=== PATIENT | male | born 1990 | race Caucasian/White ===

== ENCOUNTER 2017-01-05 12:29 | Emergency (ER) | payer OTHER ==
[~2017-01-05] VITALS: Ht 170.2 cm; Wt 70.3 kg
[2017-01-05 12:30] VITALS: BP 104/45; PULSE 106; RESP 16; TEMP 99.1; O2SAT 98
[2017-01-05] MEDS ORDERED: PROPOFOL DRIP 100 ML IV ONE (13:00)
[2017-01-05] MEDS ORDERED: DEXAMETHASONE SOD PHOSPHATE 10 MG/ML VIAL IVP ONE (13:00)
[2017-01-05] MEDS ORDERED: ONDANSETRON HCL 4 MG/2 ML VIAL IVP ONE (13:00)
[2017-01-05] MEDS ORDERED: ETOMIDATE 20 MG/ 10 ML VIAL (AMIDATE) IVP ONE (13:15)
[2017-01-05] MEDS ORDERED: NACL 0.9% 1,000 ML IV ONE (13:15)
[2017-01-05] MEDS ORDERED: MORPHINE 4 MG/ML INJ. SYRINGE ONE (13:41)
[2017-01-05] MEDS ORDERED: CEFAZOLIN 2 GM IVPB PREMIX 50 ML IV ONE (14:00)
[2017-01-05] MEDS ORDERED: MORPHINE 4 MG/ML INJ. SYRINGE IVP ONE (14:30)
[2017-01-05 14:55] LABS: BASOPHILS # (AUTO) 0.1 K/uL (0.0-0.2); BASOPHILS % (AUTO) 0.7 % (0.0-2.0); HEMATOCRIT 43.2 % (36-54); HEMOGLOBIN 14.2 g/dL (14.0-18.0); LYMPHOCYTES # (AUTO) 0.6 K/uL (1.0-5.5); LYMPHOCYTES % (AUTO) 3.5 % (20.5-51.5); MEAN CORPUSCULAR HEMOGLOBIN 27 pg (27-31); MEAN CORPUSCULAR HGB CONC 33 % (32-36); MEAN CORPUSCULAR VOLUME 84 fL (79.0-98.0); MONOCYTES # (AUTO) 0.3 K/uL (0.0-1.0); MONOCYTES % (AUTO) 1.6 % (1.7-9.3); NEUTROPHILS # (AUTO) 17.5 K/uL (1.8-7.7); PLATELET COUNT (AUTO) 231 K/uL (130-430); RED BLOOD CELL COUNT(AUTO) 5.18 MIL/uL (4.2-6.2); RED CELL DISTRIBUTION WIDTH 13.1 % (9.0-15.0); WHITE BLOOD COUNT (AUTO) 18.5 K/uL (4.8-10.8)
[2017-01-05 15:01] LABS: CALCIUM 8.6 mg/dL (8.4-11.0); CREATININE 1.29 mg/dL (0.55-1.30); POTASSIUM 4.2 mmol/L (3.5-5.1)
[2017-01-05 15:04] LABS: INR 1.4 (0.80-1.20); PROTHROMBIN TIME 14.9 SECS (9.5-12.5)
[2017-01-05 15:06] LABS: ALBUMIN 4.1 g/dL (3.4-4.8); TOTAL BILIRUBIN 0.4 mg/dL (0.0-1.0); TOTAL PROTEIN, SERUM 7.2 g/dL (6.4-8.3)
[2017-01-05] MEDS ORDERED: DIPH-TET-PERTUS Vaccine 0.5 ML VIAL (ADACEL) I.M. ONE (15:30)
[2017-01-05 15:46] LABS: NEUTROPHILS % (AUTO) 94.2 % (40.0-70.0)
[2017-01-05 16:05] VITALS: BP 121/63; PULSE 100; RESP 18; TEMP 97.8; O2SAT 97
== END 2017-01-05 15:50 | disposition short-term general hospital (02) ==
LOC: SED 12:29
DX: S52.501A Unspecified fracture of the lower end of right radius, initial encounter for closed fracture (principal); S52.601A Unspecified fracture of lower end of right ulna, initial encounter for closed fracture; V87.8XXA Person injured in other specified noncollision transport accidents involving motor vehicle (traffic), initial encounter; Y93.55 Activity, bike riding; Y92.410 Unspecified street and highway as the place of occurrence of the external cause; Y99.8 Other external cause status
CPT/HCPCS: 25565; 36415; 72125; 73090; 80053; 85025; 85610; 85730; 90471; 90715; 93005; 96361; 96365; 96375; 99152; 99285; J0690; J1100; J2270; J2405; J2704; J7030; 96374

== ENCOUNTER 2019-12-28 02:30 | Emergency (ER) | payer MEDICAID, OTHER ==
[~2019-12-28] VITALS: Ht 167.6 cm; Wt 89.8 kg
[2019-12-28 02:35] VITALS: BP_SYST 143
--- NOTE | 2019-12-28 02:40 | NUR ---
Patient to ER bed 4 to gown for evaluation. Side rails up. Report given to STEPHANIE VAZQUEZ.
--- NOTE | 2019-12-28 02:42 | NUR ---
ER at bedside examining patient.
--- NOTE | 2019-12-28 02:45 | NUR ---
patient is alert and oriented x4 and complains of lower back pain that radiates to the front of his stomach. patient states his back pain started on 12/26/19 and could not sleep at all so he called off work but the pain went away during most of the day. Patient states the pain came back tonight 12/27/19 around 10pm. Patient took a tylenol 500 mg around 2pm and he said it took his pain from a 7 out of 10 to a 5 out of 10. Patient states laying down cause the pain to worsen. Patient complains of nausea earlier today. Patient denies fever, cough, shortness of breath. Patient voices no other medical complaints at this time, will continue to monitor.
[2019-12-28 03:26] LABS: BASOPHILS % (AUTO) 0.4 % (0.0-2.0); EOSINOPHILS # (AUTO) 0.1 K/uL (0.0-0.4); EOSINOPHILS % (AUTO) 1.9 % (0.0-4.0); HEMATOCRIT 39.2 % (36-54); HEMOGLOBIN 13.2 g/dL (14.0-18.0); LYMPHOCYTES # (AUTO) 2.2 K/uL (1.0-5.5); LYMPHOCYTES % (AUTO) 30.3 % (20.5-51.5); MEAN CORPUSCULAR HEMOGLOBIN 27 pg (27-31); MEAN CORPUSCULAR HGB CONC 34 % (32-36); MEAN CORPUSCULAR VOLUME 82 fL (79.0-98.0); MONOCYTES # (AUTO) 0.5 K/uL (0.0-1.0); MONOCYTES % (AUTO) 6.6 % (1.7-9.3); NEUTROPHILS # (AUTO) 4.5 K/uL (1.8-7.7); NEUTROPHILS % (AUTO) 60.8 % (40.0-70.0); PLATELET COUNT (AUTO) 251 K/uL (130-430); RED BLOOD CELL COUNT(AUTO) 4.81 MIL/uL (4.2-6.2); RED CELL DISTRIBUTION WIDTH 13.6 % (9.0-15.0); WHITE BLOOD COUNT (AUTO) 7.3 K/uL (4.8-10.8)
[2019-12-28 03:29] LABS: CALCIUM 8.6 mg/dL (8.4-11.0); CREATININE 1.03 mg/dL (0.55-1.30); POTASSIUM 3.7 mmol/L (3.5-5.1)
[2019-12-28 03:33] LABS: ALBUMIN 3.8 g/dL (3.4-4.8); TOTAL BILIRUBIN 0.4 mg/dL (0.0-1.0)
--- NOTE | 2019-12-28 03:33 | NUR ---
Patient states his pain has completely gone away and "he feels back to normal". Patient rates his pain a 0 out 10.
[2019-12-28 03:39] LABS: BILIRUBIN,URINE NEGATIVE (NEGATIVE); BLOOD, URINE NEGATIVE (NEGATIVE); CLARITY/URINE CLEAR (CLEAR); COLOR,URINE YELLOW (YELLOW); GLUCOSE,URINE NEGATIVE (NEGATIVE); KETONES,URINE NEGATIVE (NEGATIVE); LEUKOCYTE ESTERASE ,URINE NEGATIVE (NEGATIVE); NITRITE, URINE NEGATIVE (NEGATIVE); PH,URINE 6.5 (5.0-8.0); PROTEIN URINE NEGATIVE (NEGATIVE)
--- NOTE | 2019-12-28 04:47 | NUR ---
patient states he was frequently burping and felt nauseous earlier. MD notified.
[2019-12-28] MEDS ORDERED: MAG-AL HYDROX/SIMETH 30 ML UDC PO ONE (05:00)
[2019-12-28] MEDS ORDERED: LIDOCAINE VISCOUS 2%, 15 ML UDC MM ONE (05:00)
[2019-12-28 05:11] VITALS: BP_SYST 124
--- NOTE | 2019-12-28 05:11 | NUR ---
Patient given written and verbal discharge instructions and verbalizes understanding. ER MD discussed with patient the results and treatment provided. Patient in stable condition. ID arm band removed. Rx of pepcid given. Patient educated on pain management and to follow up with PMD. Pain Scale 0/10. Opportunity for questions provided and answered. Medication side effect fact sheet provided.
== END 2019-12-28 05:11 | disposition home or self-care (01) ==
LOC: SED 02:30
DX: M54.6 Pain in thoracic spine (principal); R10.9 Unspecified abdominal pain
CPT/HCPCS: 36415; 80053; 81003; 83690; 85025; 93005; 99284; J2001

== ENCOUNTER 2020-12-12 17:55 | Emergency (ER) | payer OTHER, MEDICAID ==
[~2020-12-12] VITALS: Ht 170.2 cm; Wt 98.9 kg
[2020-12-12 18:29] VITALS: BP_SYST 144
[2020-12-12] MEDS ORDERED: MORPHINE 2 MG/ML INJ. SYRINGE IVP ONE (20:00)
[2020-12-12] MEDS ORDERED: MAG HYDROX/AL HYDROX/SIMETH 30 ML, DICYCLOMINE HCL 20 MG, LIDOCAINE VISCOUS 2% 15ML (PO... PO ONE ×3 (20:00)
[2020-12-12] MEDS ORDERED: PANTOPRAZOLE SODIUM 40 MG/VIAL (PROTONIX) IVP ONE (20:00)
[2020-12-12] MEDS ORDERED: NACL 0.9% 1,000 ML IV ONE (20:00)
[2020-12-12 20:13] LABS: CALCIUM 10.1 mg/dL (8.4-11.0); CREATININE 1.36 mg/dL (0.55-1.30); POTASSIUM 3.3 mmol/L (3.5-5.1)
[2020-12-12] MEDS ORDERED: ONDANSETRON HCL 4 MG/2 ML VIAL IVP ONE (20:15)
[2020-12-12] MEDS ORDERED: ONDANSETRON HCL 4 MG/2 ML VIAL ONE (20:16)
[2020-12-12 20:20] LABS: BILIRUBIN,URINE NEGATIVE (NEGATIVE); BLOOD, URINE NEGATIVE (NEGATIVE); CLARITY/URINE CLEAR (CLEAR); COLOR,URINE YELLOW (YELLOW); GLUCOSE,URINE NEGATIVE (NEGATIVE); KETONES,URINE TRACE (NEGATIVE); LEUKOCYTE ESTERASE ,URINE NEGATIVE (NEGATIVE); NITRITE, URINE NEGATIVE (NEGATIVE); PH,URINE 6.5 (5.0-8.0); PROTEIN URINE NEGATIVE (NEGATIVE); UROBILINOGEN,URINE 0.2 (0.2-1.0)
[2020-12-12 20:26] LABS: BASOPHILS # (AUTO) 0.2 K/uL (0.0-0.2); BASOPHILS % (AUTO) 1.2 % (0.0-2.0); EOSINOPHILS % (AUTO) 0.3 % (0.0-4.0); HEMATOCRIT 44.1 % (36-54); HEMOGLOBIN 14.5 g/dL (14.0-18.0); LYMPHOCYTES # (AUTO) 1.2 K/uL (1.0-5.5); LYMPHOCYTES % (AUTO) 7.6 % (20.5-51.5); MEAN CORPUSCULAR HEMOGLOBIN 27 pg (27-31); MEAN CORPUSCULAR HGB CONC 33 % (32-36); MEAN CORPUSCULAR VOLUME 82 fL (79.0-98.0); MONOCYTES # (AUTO) 0.5 K/uL (0.0-1.0); MONOCYTES % (AUTO) 2.9 % (1.7-9.3); NEUTROPHILS # (AUTO) 14.2 K/uL (1.8-7.7); PLATELET COUNT (AUTO) 287 K/uL (130-430); RED BLOOD CELL COUNT(AUTO) 5.41 MIL/uL (4.2-6.2); RED CELL DISTRIBUTION WIDTH 14.4 % (9.0-15.0); WHITE BLOOD COUNT (AUTO) 16.2 K/uL (4.8-10.8)
[2020-12-12 20:27] LABS: ALBUMIN 4.5 g/dL (3.4-4.8); TOTAL BILIRUBIN 0.4 mg/dL (0.0-1.0)
[2020-12-12] MEDS ORDERED: PRO40 PO (22:05)
[2020-12-12 22:15] VITALS: BP_SYST 104
== END 2020-12-12 22:15 | disposition home or self-care (01) ==
LOC: SED 17:55
DX: K29.70 Gastritis, unspecified, without bleeding (principal)
CPT/HCPCS: 36415; 80053; 81003; 83690; 85025; 96361; 96374; 96375; 99284; C9113; J2001; J2270; J2405; J7030

== ENCOUNTER 2022-05-05 09:14 | Inpatient (IN) | payer MEDICAID, OTHER ==
[~2022-05-05] VITALS: Ht 170.2 cm; Wt 90.3 kg
[~2022-05-05 09:14] MED LIST: PRO40 PO
[2022-05-05 09:15] VITALS: BP_SYST 113
--- NOTE | 2022-05-05 09:15 | NUR ---
BROUGHT BACK TO BED #7 AND TRIAGED, REPORT GIVEN TO DAV
--- NOTE | 2022-05-05 09:20 | NUR ---
PT BIB SELF ABD PAIN RADIATES TO BACK, HX OF GASTRITIS. MD AT BEDSIDE
[2022-05-05] MEDS ORDERED: MAG HYDROX/AL HYDROX/SIMETH 30 ML, DICYCLOMINE HCL 20 MG, LIDOCAINE VISCOUS 2% 15ML (PO... PO ONE ×3 (09:30)
[2022-05-05] MEDS ORDERED: OMEP40CA20 PO (09:40)
[2022-05-05] MEDS ORDERED: ONDA-8 TL (09:40)
[2022-05-05] MEDS ORDERED: DICY10CA13 PO (09:42)
[2022-05-05] MEDS ORDERED: ONDANSETRON 4 MG ODT TAB PO ONE (09:45)
[2022-05-05 09:52] LABS: BASOPHILS % (AUTO) 0.2 % (0.0-2.0); EOSINOPHILS % (AUTO) 0.1 % (0.0-4.0); HEMATOCRIT 42.2 % (36-54); LYMPHOCYTES # (AUTO) 1.5 K/uL (1.0-5.5); LYMPHOCYTES % (AUTO) 16.6 % (20.5-51.5); MEAN CORPUSCULAR VOLUME 80 fL (79.0-98.0); MONOCYTES # (AUTO) 0.6 K/uL (0.0-1.0); MONOCYTES % (AUTO) 6.6 % (1.7-9.3); NEUTROPHILS # (AUTO) 6.9 K/uL (1.8-7.7); NEUTROPHILS % (AUTO) 76.5 % (40.0-70.0); PLATELET COUNT (AUTO) 245 K/uL (130-430); RED BLOOD CELL COUNT(AUTO) 5.26 MIL/uL (4.2-6.2); RED CELL DISTRIBUTION WIDTH 13.2 % (9.0-15.0); WHITE BLOOD COUNT (AUTO) 9.1 K/uL (4.8-10.8)
[2022-05-05 10:14] LABS: CALCIUM 9.7 mg/dL (8.4-11.0); CREATININE 1.29 mg/dL (0.55-1.30); POTASSIUM 3.3 mmol/L (3.5-5.1)
[2022-05-05 10:23] LABS: ALBUMIN 4.2 g/dL (3.4-4.8); TOTAL BILIRUBIN 3.8 mg/dL (0.0-1.0)
--- NOTE | 2022-05-05 12:45 | NUR ---
NOTIFIED ED ADMITTING REGARDING DR. COTTO'S REQUEST FOR ADMISSION/TRANSFER. PER DR. COTTO, PT IS STABLE FOR TRANSFER. WILL CONTACT SR. STRATEGIC SOURCING MANAGER REGARDING THIS MATTER. PER FACESHEET: LAURA BRENNER/[facility]
--- NOTE | 2022-05-05 13:46 | NUR ---
PER JOSH, ED ADMITTING, STATED SHE CALLED [facility] [employer] [facility] [facility] MULTIPLE TIMES AND OFFICE IS CLSOED ON [facility] AND THERE WAS NO ANSWER TO THE OTHER NUMBER PROVIDED.
[2022-05-05] MEDS ORDERED: PROP20TA7 PO (14:05)
[2022-05-05] MEDS ORDERED: PROP10TA10 PO (14:08)
--- NOTE | 2022-05-05 14:09 | NUR ---
Admit bed requested Patient will be admitted to care of . Admitted to [facility] unit. Diagnosis ACUTE CHOLECYSTITIS Inpatient (Yes or No) Y Observation (Yes or No) N Orientation concerns or request close to nursing station (Yes or No) N Covid Status PENDING On vent or bipap N Isolation requirements N Needs a sitter N From Home (Yes or if No enter name of facility) Y Requires Dialysis (Yes or No) N Med Rec Completed (Yes of No) Y
--- NOTE | 2022-05-05 14:44 | NUR ---
Medication reconciliation completed with information provided by TK. Any prior medication reconciliation on file was reviewed and corrected.
[2022-05-05] MEDS ORDERED: ONDANSETRON HCL 4 MG/2 ML VIAL IVP PRN (15:30)
[2022-05-05] MEDS ORDERED: TEMAZEPAM 15 MG CAPSULE PO PRN (15:30)
[2022-05-05] MEDS ORDERED: NALOXONE HCL 0.4 MG/ML AMP (NARCAN) IVP PRN ×2 (15:30)
[2022-05-05] MEDS ORDERED: ACETAMINOPHEN 325 MG TABLET PO PRN (15:30)
[2022-05-05] MEDS ORDERED: HYDROmorphone 1 MG/ML INJ. CARTRIDGE IVP PRN (15:30)
[2022-05-05] MEDS ORDERED: POTASSIUM CHLORIDE 40 MEQ, LIDOCAINE JECT 2% PF 100 MG 50 MG in NS 250 ML IV ONE (16:30)
[2022-05-05] MEDS: D5LR 1,000 ML IV SCH (16:43)
[2022-05-05 20:00] VITALS: BP_SYST 110
--- NOTE | 2022-05-05 20:18 | NUR ---
TAYLOR [id number] GAVE REPORT TO NATHALIE VAZQUEZ FOR CONTINUITY OF CARE
[2022-05-05 20:30] VITALS: BP_SYST 110
[2022-05-05] MEDS: PROPRANOLOL HCL 10 MG TABLET (INDERAL) PO SCH (21:06)
[2022-05-06] VITALS: BP_SYST 114
[2022-05-06] MEDS: D5LR 1,000 ML IV SCH ×3 (01:50→21:30)
--- NOTE | 2022-05-06 06:17 | NUR ---
CONSULTATION PAGED/CALLED Reason for Consultation: general surgery Person Who was Notified: dr bingham Consulting Physician: dr bingham Cook'S Assistant Specialty: Ordering Physician: lu
[2022-05-06 07:30] LABS: HEMATOCRIT 38.8 % (36-54); MEAN CORPUSCULAR VOLUME 82 fL (79.0-98.0); RED BLOOD CELL COUNT(AUTO) 4.76 MIL/uL (4.2-6.2); WHITE BLOOD COUNT (AUTO) 5.5 K/uL (4.8-10.8)
[2022-05-06 07:31] LABS: BASOPHILS % (AUTO) 0.8 % (0.0-2.0); EOSINOPHILS % (AUTO) 0.6 % (0.0-4.0); LYMPHOCYTES # (AUTO) 1.3 K/uL (1.0-5.5); LYMPHOCYTES % (AUTO) 23.5 % (20.5-51.5); MONOCYTES # (AUTO) 0.4 K/uL (0.0-1.0); MONOCYTES % (AUTO) 8.1 % (1.7-9.3); NEUTROPHILS # (AUTO) 3.7 K/uL (1.8-7.7); PLATELET COUNT (AUTO) 208 K/uL (130-430); RED CELL DISTRIBUTION WIDTH 13.3 % (9.0-15.0)
[2022-05-06 07:56] LABS: ALBUMIN 3.4 g/dL (3.4-4.8); CREATININE 1.35 mg/dL (0.55-1.30); TOTAL BILIRUBIN 1.8 mg/dL (0.0-1.0)
[2022-05-06 08:00] VITALS: BP_SYST 120
[2022-05-06] MEDS: PROPRANOLOL HCL 10 MG TABLET (INDERAL) PO SCH ×2 (09:00→20:35)
[2022-05-06] MEDS ORDERED: OMEPRAZOLE Non-Formulary 20 MG CAPSULE.DR PO SCH (09:00)
[2022-05-06] MEDS: PANTOPRAZOLE SODIUM 40 MG TAB PO SCH (09:00)
[2022-05-06 12:00] VITALS: BP_SYST 118
[2022-05-06 12:17] LABS: BILIRUBIN,URINE 2+ (NEGATIVE); BLOOD, URINE NEGATIVE (NEGATIVE); CLARITY/URINE CLEAR (CLEAR); COLOR,URINE ORANGE (YELLOW); GLUCOSE,URINE NEGATIVE (NEGATIVE); KETONES,URINE 1+ (NEGATIVE); LEUKOCYTE ESTERASE ,URINE NEGATIVE (NEGATIVE); NITRITE, URINE NEGATIVE (NEGATIVE); PROTEIN URINE TRACE (NEGATIVE)
[2022-05-06 12:41] LABS: RBC,URINE 0-3 /HPF (0-3); WBC,URINE 0-3 /HPF (0-3)
[2022-05-06 12:42] LABS: BACTERIA,URINE None Seen /HPF (None Seen)
[2022-05-06 16:00] VITALS: BP_SYST 120
[2022-05-06 20:00] VITALS: BP_SYST 97
--- NOTE | 2022-05-06 23:34 | NUR ---
PATIENT IN BED, NO ACUTE DISTRESS NOTED. NPO AFTER MIDNIGHT FOR SURGERY. WILL CONTINUE TO MONITOR.
[2022-05-07 07:10] LABS: BASOPHILS % (AUTO) 0.4 % (0.0-2.0); EOSINOPHILS # (AUTO) 0.2 K/uL (0.0-0.4); EOSINOPHILS % (AUTO) 3.9 % (0.0-4.0); HEMATOCRIT 36.4 % (36-54); MEAN CORPUSCULAR VOLUME 81 fL (79.0-98.0); MONOCYTES # (AUTO) 0.4 K/uL (0.0-1.0); MONOCYTES % (AUTO) 8.3 % (1.7-9.3); NEUTROPHILS # (AUTO) 1.9 K/uL (1.8-7.7); NEUTROPHILS % (AUTO) 42.4 % (40.0-70.0); PLATELET COUNT (AUTO) 187 K/uL (130-430); RED BLOOD CELL COUNT(AUTO) 4.48 MIL/uL (4.2-6.2); RED CELL DISTRIBUTION WIDTH 13.3 % (9.0-15.0); WHITE BLOOD COUNT (AUTO) 4.5 K/uL (4.8-10.8)
[2022-05-07 07:31] LABS: ALBUMIN 2.8 g/dL (3.4-4.8); CALCIUM 8.5 mg/dL (8.4-11.0); CREATININE 1.12 mg/dL (0.55-1.30); POTASSIUM 3.7 mmol/L (3.5-5.1); TOTAL BILIRUBIN 0.6 mg/dL (0.0-1.0)
[2022-05-07 08:00] VITALS: BP_SYST 106
--- NOTE | 2022-05-07 08:00 | NUR ---
Mr Green has been assessed as indicated. He denies pain and rests quietly. He has been prepped for surgery this arfternoon. personal clothing has nicolette removed. he has on a hospital gown. all jewelry has been removed and he has been given a CHG bath.
[2022-05-07] MEDS: PANTOPRAZOLE SODIUM 40 MG TAB PO SCH (10:59)
[2022-05-07] MEDS: PROPRANOLOL HCL 10 MG TABLET (INDERAL) PO SCH ×2 (11:00→20:53)
--- NOTE | 2022-05-07 11:00 | NUR ---
appropriate IV access has been established in both arms
[2022-05-07] MEDS: D5LR 1,000 ML IV SCH ×2 (11:01→18:33)
--- NOTE | 2022-05-07 11:03 | NUR ---
Green states that he only takes 10mg of inderal BID
[2022-05-07 11:50] VITALS: BP_SYST 112
[2022-05-07 12:07] LABS: HEPATITIS A AB, IgM Negative (Negative); HEPATITIS B CORE AB, IgM Negative (Negative); HEPATITIS B SURFACE AG Negative (Negative)
--- NOTE | 2022-05-07 14:15 | NUR ---
Mr Green leaves room 125B via bed to got to the OR. He has no s/s of distress or discomfort and is compliant with the plan to have surgery.
[2022-05-07] MEDS ORDERED: LR 1,000 ML IV.SOLN IV ONE (14:40)
[2022-05-07] MEDS ORDERED: PROPOFOL 200MG/ 20ML VIAL (DIPRIVAN) IV ONE (14:40)
[2022-05-07] MEDS ORDERED: SUCCINYLCHOLINE CHLORIDE 20 MG/ML(QUELICIN) IVP ONE (14:40)
[2022-05-07] MEDS ORDERED: NS 1000 ML IV.SOLN IV ONE (14:40)
[2022-05-07] MEDS ORDERED: fentaNYL CITRATE/PF 100 MCG/2 ML AMP IVP ONE (14:40)
[2022-05-07] MEDS ORDERED: NEOSTIGMINE METHYLSULFATE 1 MG/ML, 10 ML VIAL IVP ONE (14:40)
[2022-05-07] MEDS ORDERED: ROCURONIUM BROMIDE 10 MG/ML (ZEMURON) IV ONE (14:40)
[2022-05-07] MEDS ORDERED: CEFAZOLIN 2 GM IVPB PREMIX 50 ML IV ONE (14:40)
[2022-05-07] MEDS ORDERED: GLYCOPYRROLATE 0.2 MG/ML VIAL IJ ONE (14:40)
[2022-05-07] MEDS ORDERED: NS IRRIG SOLN 1000 ML IR ONE (14:40)
[2022-05-07] MEDS ORDERED: SEVOFLURANE 15 MIN GAS INH ONE (14:40)
[2022-05-07] MEDS ORDERED: ONDANSETRON HCL 4 MG/2 ML VIAL IVP PRN (15:30)
[2022-05-07] MEDS ORDERED: METOCLOPRAMIDE HCL 10 MG/2 ML VIAL IVP PRN (15:30)
[2022-05-07] MEDS ORDERED: fentaNYL CITRATE/PF 100 MCG/2 ML AMP IVP PRN ×2 (15:30)
[2022-05-07] MEDS: fentaNYL CITRATE/PF 100 MCG/2 ML AMP ONE ×2 (16:38→16:40)
[2022-05-07] MEDS ORDERED: HYDROcodone/ACETAMIN 5-325 MG TAB (NORCO/ VICODIN) PO PRN (16:45)
--- NOTE | 2022-05-07 17:45 | NUR ---
Mr Green has returned for PACU he is resting quietly. He does have compliant on nausea and was provided with IV antiemetic medication. His sister is a the bedside. He is resting quietly lapsites are clean dry and intact. He has been positioned as comfortably as possible. and has been reminded to use IS
[2022-05-07 17:50] VITALS: BP_SYST 117
[2022-05-07] MEDS: HYDROmorphone 1 MG/ML INJ. CARTRIDGE IVP PRN ×2 (18:33→20:53)
[2022-05-07 20:00] VITALS: BP_SYST 111
--- NOTE | 2022-05-07 23:25 | NUR ---
PATIENT IN BED. NO ACUTE DISTRESS NOTED. C/O PAIN PRN GIVEN. WILL CONTINUE TO MONITOR.
[2022-05-08] VITALS: BP_SYST 106
[2022-05-08] MEDS: HYDROmorphone 1 MG/ML INJ. CARTRIDGE IVP PRN (03:42)
[2022-05-08] MEDS: D5LR 1,000 ML IV SCH (03:42)
--- NOTE | 2022-05-08 07:00 | NUR ---
Mr Green has been assessed as indicated. he has been successfully treated for abdominal pain with PO medication. He has tolerated his clear breakfast. No c/o N/V/ He ambulates independently in the halls. He is presently resting quietly with no s/s of distress or discomfort.
[2022-05-08 08:00] VITALS: BP_SYST 104
[2022-05-08] MEDS: PROPRANOLOL HCL 10 MG TABLET (INDERAL) PO SCH (09:38)
[2022-05-08] MEDS: PANTOPRAZOLE SODIUM 40 MG TAB PO SCH (09:38)
[2022-05-08 12:00] VITALS: BP_SYST 99
--- NOTE | 2022-05-08 15:30 | NUR ---
Mr Green has had a regular lunch tray and has tolerated the intake well. He had no s/s of distress or discomfort. he continues to ambulate and denies pain
[2022-05-08 16:00] VITALS: BP_SYST 116
[2022-05-08 17:48] LABS: BASOPHILS % (AUTO) 0.5 % (0.0-2.0); EOSINOPHILS # (AUTO) 0.1 K/uL (0.0-0.4); LYMPHOCYTES # (AUTO) 1.8 K/uL (1.0-5.5); LYMPHOCYTES % (AUTO) 24.8 % (20.5-51.5); MEAN CORPUSCULAR VOLUME 82 fL (79.0-98.0); MONOCYTES # (AUTO) 0.6 K/uL (0.0-1.0); MONOCYTES % (AUTO) 8.6 % (1.7-9.3); NEUTROPHILS # (AUTO) 4.8 K/uL (1.8-7.7); NEUTROPHILS % (AUTO) 65.1 % (40.0-70.0); PLATELET COUNT (AUTO) 193 K/uL (130-430); RED CELL DISTRIBUTION WIDTH 13.5 % (9.0-15.0); WHITE BLOOD COUNT (AUTO) 7.4 K/uL (4.8-10.8)
[2022-05-08 18:08] LABS: CREATININE 1.22 mg/dL (0.55-1.30); POTASSIUM 4.2 mmol/L (3.5-5.1)
[2022-05-08 18:15] LABS: ALBUMIN 3.3 g/dL (3.4-4.8); TOTAL BILIRUBIN 0.7 mg/dL (0.0-1.0)
--- NOTE | 2022-05-08 20:12 | NUR ---
Dr Purvis states that he has seen Mr Green and it is ok to DC him tonight.
[2022-05-08 20:31] VITALS: BP_SYST 103
--- NOTE | 2022-05-08 20:45 | NUR ---
DR MORALES SAW PT AND CLEARED HIM FOR DISCHARGE. ID BAND AND IV REMOVED, DISCHARGE PAPERWORK COMPLETED. VSS. BP 127/81, HR 82 O2 100%. PT AMBULATORY W/ STEADY GAIT
== END 2022-05-08 20:45 | disposition home or self-care (01) | DRG 263 ==
LOC: SED 09:14 → SMU 14:01
PROVIDERS: ADMIT Internal Medicine; ATTEND Internal Medicine
PROC: BF131ZZ Fluoroscopy of Gallbladder and Bile Ducts using Low Osmolar Contrast (ICD-10-PCS; 2022-05-07)
PROC: 0FT44ZZ Resection of Gallbladder, Percutaneous Endoscopic Approach (ICD-10-PCS; principal; 2022-05-07 14:41)
DX: K80.62 Calculus of gallbladder and bile duct with acute cholecystitis without obstruction (principal); E44.1 Mild protein-calorie malnutrition; K76.0 Fatty (change of) liver, not elsewhere classified; F41.9 Anxiety disorder, unspecified; Z20.822 Contact with and (suspected) exposure to COVID-19; K29.70 Gastritis, unspecified, without bleeding; K82.8 Other specified diseases of gallbladder; Z79.899 Other long term (current) drug therapy; Z68.31 Body mass index [BMI] 31.0-31.9, adult
CPT/HCPCS: 36415; 71045; 74021; 74181; 76000; 76705; 80053; 80061; 80074; 81000; 83690; 85025; 88304; 93005; 96374; 99285; C1727; C1758; J0330; J0690; J1170; J2001; J2405; J2704; J2710; J3010; J3480; J3490; J7030; J7050; J7120; Q0162; Q9967